=== PATIENT | male | born 1995 | race African-American/Black ===

== ENCOUNTER 2017-03-09 07:43 | Emergency (ER) | payer SELFPAY ==
[~2017-03-09] VITALS: Ht 175.3 cm; Wt 75.0 kg
[~2017-03-09 07:43] MED LIST: HYDR-3533 PO
[2017-03-09 07:45] VITALS: BP 135/82; PULSE 88; RESP 16; TEMP 97.9; O2SAT 100
--- NOTE | 2017-03-09 07:52 | PD ---
HPI . sore throat/cough for 1 mt Chief Complaint: Cold / Flu Symptoms Time Seen by Provider: 07:52 Travel History International Travel<30 days: No Contact w/Intl Traveler<30days: No Traveled to known affect area: No History of Present Illness HPI 22 Year-old male here with complaints of cough, sore throat and cold-like symptoms off and on for one month. Patient says he's been having intermittent symptoms for about a month. He has not tried anything to improve it. He is complaining of sore throat today. He admits to fever and says about a week or so ago he had a fever of 102.0, then he changes and tells me he had a fever when this all started. He decided to come to ED for evaluation because his dad was sick and got better, but he is not getting better. He has no other complaints. He is a poor historian. PFSH Past Medical History Developmental Delay: No Diminished Hearing: Yes (LEFT EAR, FEELS FULL) Immunizations Current: Yes Social History Alcohol Use: No Tobacco Use: No Substance Use: No Allergies-Medications (Allergen,Severity, Reaction): Coded Allergies: No Known Allergies (Verified , 08/16/16) Reported Meds & Prescriptions Reported Meds & Active Scripts Active Lortab 5 mg/325 mg (Hydrocodone/Acetaminophen 5 mg/325 mg) 1 Tab 1 Tab PO Q6H PRN Review of Systems General / Constitutional: No: Fever Eyes: No: Visual changes HENT: Positive: Sore Throat, Congestion, No: Headaches Cardiovascular: No: Chest Pain or Discomfort Respiratory: Positive: Cough, No: Shortness of Breath Gastrointestinal: No: Abdominal Pain Genitourinary: No: Dysuria Musculoskeletal: No: Pain Skin: No Rash Neurologic: No: Weakness Psychiatric: No: Depression Endocrine: No: Polydipsia Hematologic/Lymphatic: No: Easy Bruising Physical Exam Narrative GENERAL: AAO x 3, no acute distress, Well-nourished, well-developed patient. SKIN: Warm and dry. No visible rashes or bruising. HEAD: Normocephalic and atraumatic. EYES: No scleral icterus. No injection or drainage. ENT: No nasal drainage noted. Mucous membranes pink. Airway patent. TMs normal bilaterally. Posterior fractures without erythema, exudates or edema. There is mild postnasal drip. NECK: Supple, trachea midline. No JVD. No lymphadenopathy. CARDIOVASCULAR: Regular rate and rhythm without murmurs, gallops, or rubs. RESPIRATORY: Breath sounds equal bilaterally. No accessory muscle use. No rhonchi or rales. No wheezing. GASTROINTESTINAL: Visual inspection is normal. EXTREMITIES: No cyanosis or edema. BACK: Nontender without obvious deformity. No CVA tenderness. PSYCH: AAO x 3, normal affect. Data Data Last Documented VS Vital Signs Date Time Temp Pulse Resp B/P Pulse Ox O2 Delivery O2 Flow Rate FiO2 03/09/17 07:45 97.9 88 16 135/82 100 Room Air MDM Medical Decision Making Medical Screen Exam Complete: Yes Emergency Medical Condition: No Medical Record Reviewed: Yes Differential Diagnosis viral syndrome, less likely bronchitis, less likely bacterial pharyngitis Narrative Course 22 Year-old male here with complaints of cough, sore throat and cold-like symptoms off and on for one month. Patient says he's been having intermittent symptoms for about a month. He has not tried anything to improve it. He is complaining of sore throat today. He admits to fever and says about a week or so ago he had a fever of 102.0, then he changes and tells me he had a fever when this all started. He decided to come to ED for evaluation because his dad was sick and got better, but he is not getting better. He has no other complaints. He is a poor historian. A medical screening exam was performed: At the time of evaluation the presenting medical condition was determined not to be of an emergent nature. The patient was given the option of receiving additional care, but declined. Patient was given options for additional community resources from which to obtain care. The Patient Has Been advised to seek medical attention for their presenting complaint. The patient has been advised to return to the ER at any time if an emergent condition develops. Diagnosis Primary Impression: Encounter for medical screening examination Condition: Stable Josette Bajwa Mar 09, 2017 07:52
== END 2017-03-09 08:05 | disposition left against medical advice (07) ==
LOC: NEPK 07:43
DX: R05 Cough (principal)
CPT/HCPCS: 99281

== ENCOUNTER 2017-12-18 13:53 | Emergency (ER) | payer SELFPAY ==
[~2017-12-18] VITALS: Ht 175.3 cm; Wt 68.2 kg
[2017-12-18 13:56] VITALS: BP 130/66; PULSE 103; RESP 14; TEMP 100.9; O2SAT 100
[2017-12-18] MEDS ORDERED: IBUPROFEN 800 MG TAB PO ONE (14:45)
[2017-12-18] MEDS ORDERED: ZOFR4TAB3 SL (15:00)
[2017-12-18] MEDS ORDERED: OSEL75 PO (15:00)
--- NOTE | 2017-12-18 15:05 | PD ---
HPI Chief Complaint: Cold / Flu Symptoms Time Seen by Provider: 14:48 Travel History International Travel<30 days: No Contact w/Intl Traveler<30days: No Traveled to known affect area: No History of Present Illness HPI Patient comes emergency department complaining of flulike symptoms that began last night. Patient reports started to have a nonproductive cough last night when he awoke this morning he had generalized body aches, headache, subjective fever, sore throat, and nausea. Patient denies doing anything for this. Denies anything making symptoms better or worse. Denies any vomiting, abdominal pain, loss or change in bowel or bladder, chest pain, shortness of breath, or neck pain. He denies any known sick contacts. Denies any radiation of pain. PFSH Past Medical History Medical History: Denies Significant Hx Developmental Delay: No Diminished Hearing: No Immunizations Current: Yes Influenza Vaccination: No Past Surgical History Surgical History: No Previous Surgery Social History Alcohol Use: No Tobacco Use: No Substance Use: No Allergies-Medications (Allergen,Severity, Reaction): Coded Allergies: No Known Allergies (Verified Adverse Reaction, Unknown, 12/18/17) Reported Meds & Prescriptions Reported Meds & Active Scripts Active Zofran Odt (Ondansetron Odt) 4 Mg Tab 4 Mg SL Q6HR PRN Tamiflu (Oseltamivir Phosphate) 75 Mg Cap 75 Mg PO BID 5 Days Review of Systems Except as stated in HPI: all other systems reviewed are Neg Physical Exam Narrative GENERAL: Well-developed, well nourished, in no acute distress, and non-ill appearing. SKIN: Focused skin assessment warm and dry. HEAD: Atraumatic. Normocephalic. EYES: Pupils equal and round. EOMI. No scleral icterus. No injection or drainage. ENT: No nasal bleeding or discharge. Mucous membranes pink and moist. Tympanic membrane pearly dela cruz bilaterally. Posterior pharynx nonerythematous without exudate. Uvulas midline. No tenderness to facial sinuses to palpation. Patient swallowing on saliva and speaking in full sentences without difficulty. NECK: Trachea midline. No cervical lymphadenopathy. Supple. No nuclear rigidity. CARDIOVASCULAR: Regular rate and rhythm. No murmur appreciated. RESPIRATORY: No accessory muscle use. No respiratory distress. Clear to auscultation. Breath sounds equal bilaterally. No coughing on exam. MUSCULOSKELETAL: No obvious deformities. No clubbing. No cyanosis. No edema. Full range of motion. NEUROLOGICAL: Awake and alert. No obvious cranial nerve deficits. Motor grossly within normal limits. Normal speech. PSYCHIATRIC: Appropriate mood and affect; insight and judgment normal. Data Data Last Documented VS Vital Signs Date Time Temp Pulse Resp B/P (MAP) Pulse Ox O2 Delivery O2 Flow Rate FiO2 12/18/17 15:28 12/18/17 13:56 100.9 103 14 100 Orders Orders Ibuprofen (Motrin) (12/18/17 14:45) Ed Discharge Order (12/18/17 14:59) MDM Medical Decision Making Medical Screen Exam Complete: Yes Emergency Medical Condition: Yes Differential Diagnosis Influenza, viral syndrome, URI Narrative Course Patient looks great. Patients symptom complex is consistent with Influenza, or flu-like illness. The patient is tolerating fluids and is well hydrated. There is no evidence to suggest secondary infection (pneumonia, sepsis/bacteremia, etc.) at this time. I discussed with the patient, diagnosis, and plan of care and to follow up with the patients primary physician. I discussed with the patient regarding testing, even if rapid influenza negative, I would suspect false negative. I discussed with the patient initiating Tamiflu and the patient agreed with plan. The patient was instructed to return if the worsens in anyway , especially if not tolerating fluids, increased pain or swelling, difficulty swallowing or breathing, or as needed. The patient agreed with plan. Patient in no obvious distress upon re-evaluation. Patient was asked if they wanted to speak to my attending, which the patient did not wish to do at this time. Any questions/concerns in reference to patient diagnosis/condition discussed and clarified prior to patient's discharge. Reinforced sheer importance of close follow up with patient's primary physician or primary care clinic. Instructed patient to return to ED immediately, if symptoms return/ worsen. Patient showed understanding of above instructions. Further instructions and recommendations were detailed in discharge paperwork. Patient ambulated without difficulty out of ED at discharge. Diagnosis Primary Impression: Flu-like symptoms Referrals: [facility] Patient Instructions: General Instructions, Influenza (ED) Departure Forms: Work Release Enter return to work date: Dec 25, 2017 Additional Instructions: Follow-up with your primary care physician in 5-7 days for reevaluation. Take all medication as prescribed. Use [id number] Tylenol and ibuprofen as needed for pain and fever. Follow instructions on the packaging. Drink plenty of non-caffeinated and nonalcoholic fluids. Return to the emergency department if symptoms get worse. Med/Other Pt SpecificInfo: Prescription(s) given Scripts Ondansetron Odt (Zofran Odt) 4 Mg Tab 4 MG SL Q6HR Y for Nausea/Vomiting, #12 TAB 0 Refills Prov: Galdino Smith MD 12/18/17 Oseltamivir (Tamiflu) 75 Mg Cap 75 MG PO BID for Mgmt Viral Infection for 5 Days, #10 CAP 0 Refills Prov: Galdino Smith MD 12/18/17 Disposition: 01 DISCHARGE HOME Condition: Stable Jeevan Edmond Dec 18, 2017 15:05
== END 2017-12-18 15:29 | disposition home or self-care (01) ==
LOC: NEPK 13:53
DX: J11.1 Influenza due to unidentified influenza virus with other respiratory manifestations (principal)
CPT/HCPCS: 99284